=== PATIENT | male | born 2000 | race Caucasian/White ===

== ENCOUNTER 2024-05-26 14:57 | Emergency (ER) | payer OTHER ==
[2024-05-26 15:08] VITALS: BP 132/83; PULSE 88; RESP 20; TEMP 98.1; BMI 22.1
[2024-05-26 16:34] LABS: BASO % 0.3 % (0-2.0); EOS % 0.7 % (0-4.5); HEMATOCRIT 44.3 % (35.4-49); LYMPH % 22.8 % (8-40); MEAN CELL VOLUME 85.3 fl (80-96); MEAN PLT VOLUME 8.4 fl (7.5-11.1); MONO % 6.3 % (3.8-10.2); NEUT % 69.9 % (42.8-82.8); PLATELET COUNT 217 10^3/uL (134-434); RBC 5.19 M/mm3 (4.00-5.60); RDW 13.2 % (11.9-15.9); WHITE BLOOD COUNT 6.7 K/mm3 (4.0-10.0)
[2024-05-26 16:36] LABS: PH,URINE 7.5 (5.0-8.0); URINE APPEARANCE CLEAR; URINE BILIRUBIN NEGATIVE (NEGATIVE); URINE COLOR YELLOW; URINE GLUCOSE (UA) NEGATIVE (NEGATIVE); URINE KETONE NEGATIVE (NEGATIVE); URINE LEUK ESTERASE NEGATIVE (NEGATIVE); URINE NITRITE NEGATIVE (NEGATIVE); URINE PROTEIN NEGATIVE (NEGATIVE); URINE UROBILINOGEN 0.2 mg/dL (0.2-1.0)
[2024-05-26 16:45] LABS: INR 0.98 (0.83-1.09); PROTHROMBIN TIME (PATIENT) 11.1 SEC (9.7-13.0)
[2024-05-26 16:47] LABS: ACTIVATED PTT 31.4 SECONDS (25.2-36.5)
[2024-05-26] MEDS ORDERED: ACETAMINOPHEN INJECTION 100 ML ONE (16:50)
[2024-05-26] MEDS ORDERED: ONDANSETRON 4 MG/2 ML VIAL ONE (16:51)
[2024-05-26 16:58] LABS: POTASSIUM 3.9 mmol/L (3.5-5.1)
[2024-05-26 17:02] LABS: CALCIUM 9.5 mg/dL (8.5-10.1)
[2024-05-26 17:03] LABS: BLOOD UREA NITROGEN 9.3 mg/dL (7-18)
[2024-05-26 17:06] LABS: CREATININE 0.8 mg/dL (0.55-1.3)
[2024-05-26 17:07] LABS: BILIRUBIN,TOTAL 0.4 mg/dL (0.2-1); TOT PROT 7.6 g/dl (6.4-8.2)
[2024-05-26] MEDS: SODIUM CHLORIDE 1,000 ML IV STA (17:07)
[2024-05-26] MEDS: ONDANSETRON 4 MG/2 ML VIAL IVPUSH ONE (17:07)
[2024-05-26] MEDS: ACETAMINOPHEN 1000 MG/100 ML BAG IVPB ONE (17:07)
== END 2024-05-26 18:58 | disposition home or self-care (01) ==
LOC: JER 14:57
PROC: 3E033NZ Introduction of Analgesics, Hypnotics, Sedatives into Peripheral Vein, Percutaneous Approach (ICD-10-PCS; principal; 2024-05-26)
PROC: 3E033GC Introduction of Other Therapeutic Substance into Peripheral Vein, Percutaneous Approach (ICD-10-PCS; 2024-05-26)
PROC: 3E0337Z Introduction of Electrolytic and Water Balance Substance into Peripheral Vein, Percutaneous Approach (ICD-10-PCS; 2024-05-26)
DX: R10.31 Right lower quadrant pain (principal); R10.13 Epigastric pain; R11.0 Nausea; Z20.822 Contact with and (suspected) exposure to COVID-19
CPT/HCPCS: 0241U-QW; 36415; 74177-TC; 80053; 81003; 85025; 85610; 85730; 99285-25; J0131